=== PATIENT | male | born 1975 | race Caucasian/White ===

== ENCOUNTER 2017-12-07 19:31 | Observation (INO) | payer BC, OTHER ==
[2017-12-07] MEDS ORDERED: Sodium Chloride 0.9% 1,000 ML IV ONE (19:39)
[2017-12-07] MEDS ORDERED: Aspirin 81 MG Tab.Chew PO ONE (19:39)
[2017-12-07] MEDS ORDERED: Nitroglycerin 0.4 MG Tab.SL SL PRN (19:47)
--- NOTE | 2017-12-07 19:47 | EDM.PDOC ---
ED HPI GENERAL MEDICAL PROBLEM - General Stated Complaint: CHEST PAIN Time Seen by Provider: 12/07/17 19:38 Source of Information: Reports: Patient History Limitations: Reports: No Limitations - History of Present Illness INITIAL COMMENTS - FREE TEXT/NARRATIVE: HISTORY AND PHYSICAL: History of present illness: Patient is a 41-year-old male who presents to the emergency room today with complaints of chest pain since Thursday. In his intermittent and can last minutes to hours on the right side of the chest. He describes this pain as a "squeezing pressure" and "feels fluttery". The pain does not radiate anywhere. Does associate it with some mild nausea. Denies any visual changes, diaphoresis, shortness of breath, cough. Denies any abdominal pain, nausea, vomiting, diarrhea or constipation. No history of smoking. No excessive caffeine or stimulant use. No personal history of heart disease. No family history of heart disease. Review of systems: As per history of present illness and below otherwise all systems reviewed and negative. Past medical history: As per history of present illness and as reviewed below otherwise noncontributory. Surgical history: As per history of present illness and as reviewed below otherwise noncontributory. Social history: No reported history of drug or alcohol abuse. Family history: As per history of present illness and as reviewed below otherwise noncontributory. Physical exam: General: Well-developed and well-nourished 41-year-old male. Alert and oriented. Nontoxic appearing and in no acute distress. HEENT: Atraumatic, normocephalic, pupils equal and reactive bilaterally, negative for conjunctival pallor or scleral icterus, mucous membranes moist, throat clear, neck supple, nontender, trachea midline. No drooling or trismus noted. No meningeal signs Lungs: Clear to auscultation, breath sounds equal bilaterally, chest nontender. Heart: S1S2, regular rate and rhythm without overt murmur Abdomen: Soft, nondistended, nontender. Negative for masses or hepatosplenomegaly. Negative for costovertebral tenderness. Pelvis: Stable nontender. Genitourinary: Deferred. Rectal: Deferred. Skin: Intact, warm, dry. No lesions or rashes noted. Extremities: Atraumatic, negative for cords or calf pain. Neurovascular unremarkable. Neuro: Awake, alert, oriented. Cranial nerves II through XII unremarkable. Cerebellum unremarkable. Motor and sensory unremarkable throughout. Exam nonfocal. Notes: Lab work is unremarkable. I did discuss with the patient admission for observation. He is agreeable. Dr. Ruiz was consulted on this case and is agreeable to keeping the patient overnight. Diagnostics: CBC, CMP, troponin, EKG, chest x-ray Therapeutics: IV fluid, aspirin, nitroglycerin Prescription: Impression: Chest Pain Plan: Observation admission to Med/Surg Definitive disposition and diagnosis as appropriate pending reevaluation and review of above. Duration: Day(s): Location: Reports: Chest Left Chest Pain Score (Numeric/FACES): 3 - Related Data Allergies Allergy/AdvReac Type Severity Reaction Status Date / Time No Known Allergies Allergy Verified 12/07/17 19:41 Home Meds: Home Meds . [No Known Home Meds] 12/07/17 [History] ED ROS GENERAL - Review of Systems Review Of Systems: ROS reveals no pertinent complaints other than HPI. ED EXAM, GENERAL - Physical Exam Exam: See Below (See dictation) Course - Vital Signs Last Recorded V/S: Last Vital Signs Temp 98.0 F 12/07/17 19:34 Pulse 78 12/07/17 20:30 Resp 16 12/07/17 20:00 BP 117/67 12/07/17 20:30 Pulse Ox 99 12/07/17 20:00 - Orders/Labs/Meds Orders: Active Orders 24 hr Category Date Time Status EKG Documentation Completion [RC] STAT Care 12/07/17 19:39 Active Chest 1V Frontal [CR] Stat Exams 12/07/17 20:16 Taken Nitroglycerin [Nitrostat] Med 12/07/17 19:47 Active 0.4 mg SL Q5M PRN Medication Orders Nitroglycerin (Nitrostat) 0.4 mg SL Q5M PRN PRN Reason: Chest Pain Last Admin: 12/07/17 20:04 Dose: 0.4 mg Labs: Laboratory Tests 12/07/17 12/07/17 Range/Units 19:35 19:35 WBC 6.94 (4.0-11.0) K/uL RBC 4.85 (4.50-5.90) M/uL Hgb 15.8 (13.0-17.0) g/dL Hct 46.3 (38.0-50.0) % MCV 95.5 (80.0-98.0) fL MCH 32.6 H (27.0-32.0) pg MCHC 34.1 (31.0-37.0) g/dL RDW Std Deviation 43.2 (28.0-62.0) fl RDW Coeff of Doreen 13 (11.0-15.0) % Plt Count 221 (150-400) K/uL MPV 10.40 (7.40-12.00) fL Neut % (Auto) 37.6 L (48.0-80.0) % Lymph % (Auto) 49.4 H (16.0-40.0) % [place] % (Auto) 10.7 (0.0-15.0) % Eos % (Auto) 1.7 (0.0-7.0) % Baso % (Auto) 0.6 (0.0-1.5) % Neut # (Auto) 2.6 (1.4-5.7) K/uL Lymph # (Auto) 3.4 H (0.6-2.4) K/uL [place] # (Auto) 0.7 (0.0-0.8) K/uL Eos # (Auto) 0.1 (0.0-0.7) K/uL Baso # (Auto) 0.0 (0.0-0.1) K/uL Nucleated RBC % 0.0 /100WBC Nucleated RBCs # 0 K/uL Sodium 141 (136-148) mmol/L Potassium 3.7 (3.5-5.1) mmol/L Chloride 104 (98-107) mmol/L Carbon Dioxide 28.7 (21.0-32.0) mmol/L BUN 12 (7.0-18.0) mg/dL Creatinine 1.3 (0.8-1.3) mg/dL Est Cr Clr Drug Dosing 69.91 mL/min Estimated GFR (MDRD) > 60.0 ml/min Glucose 96 (74-106) mg/dL Calcium 9.1 (8.5-10.1) mg/dL Total Bilirubin 0.5 (0.2-1.0) mg/dL AST 23 (15-37) IU/L ALT 67 H (14-63) IU/L Alkaline Phosphatase 66 (46-116) U/L Troponin I < 0.050 (0.000-0.056) ng/mL Total Protein 7.7 (6.4-8.2) g/dL Albumin 4.2 (3.4-5.0) g/dL Globulin 3.5 (2.0-3.5) g/dL Albumin/Globulin Ratio 1.2 L (1.3-2.8) Meds: Medications Generic Name Dose Route Start Last Admin Trade Name Addison PRN Reason Stop Dose Admin Nitroglycerin 0.4 mg 12/07/17 19:47 12/07/17 20:04 Nitrostat SL 0.4 mg Q5M PRN Administration Chest Pain Discontinued Medications Generic Name Dose Route Start Last Admin Trade Name Addison PRN Reason Stop Dose Admin Aspirin 324 mg 12/07/17 19:39 12/07/17 19:55 Aspirin PO 12/07/17 19:40 324 mg ONETIME ONE Administration Sodium Chloride 1,000 mls @ 999 mls/hr 12/07/17 19:39 12/07/17 19:55 Normal Saline IV 12/07/17 20:39 999 mls/hr STAT ONE Administration Ketorolac Tromethamine 30 mg 12/07/17 20:43 12/07/17 20:46 Toradol IVPUSH 12/07/17 20:44 30 mg ONETIME ONE Administration Departure - Departure Time of Disposition: 21:00 Disposition: Refer to Observation Clinical Impression: Chest pain, rule out acute myocardial infarction - My Orders Last 24 Hours: My Active Orders 12/07/17 19:39 EKG Documentation Completion [RC] STAT 12/07/17 19:47 Nitroglycerin [Nitrostat] 0.4 mg SL Q5M PRN 12/07/17 20:16 Chest 1V Frontal [CR] Stat - Assessment/Plan Last 24 Hours: My Active Orders 12/07/17 19:39 EKG Documentation Completion [RC] STAT 12/07/17 19:47 Nitroglycerin [Nitrostat] 0.4 mg SL Q5M PRN 12/07/17 20:16 Chest 1V Frontal [CR] Stat
[2017-12-07 20:25] LABS: CHLORIDE,CL 104 mmol/L (98-107); SODIUM,NA 141 mmol/L (136-148)
[2017-12-07] MEDS ORDERED: Ketorolac 30 MG/ML SDV IVPUSH ONE (20:43)
[2017-12-07] MEDS ORDERED: Acetaminophen 325 MG Tab PO PRN (22:13)
[2017-12-07] MEDS ORDERED: Morphine 2 MG/ML Syringe IVPUSH PRN (22:14)
--- NOTE | 2017-12-08 12:25 | PCM.HP ---
H&P History of Present Illness - General Date of Service: 12/08/17 Admit Problem/Dx: Admission Diagnosis/Problem Admission Diagnosis/Problem Chest pain, rule out acute myocardial infarction - History of Present Illness Initial Comments - Free Text/Narative: 41 yo male who presented to the ED with chest pain. He described it as a left upper chest squeezing sensation. It would last for several minutes and occur several times a day throughout the weekend. He denies any cough, shortenss of breath. or diaphoresis. Left Chest Pain Score (Numeric/FACES): 1 - Related Data Allergies/Adverse Reactions: Allergies Allergy/AdvReac Type Severity Reaction Status Date / Time No Known Allergies Allergy Verified 12/07/17 19:41 Home Medications: Home Meds . [No Known Home Meds] 12/07/17 [History] Past Medical History - Past Health History Medical/Surgical History: Denies Medical/Surgical History Social & Family History - Family History Family Medical History: Noncontributory - Tobacco Use Smoking Status *Q: Former Smoker Years of Tobacco use: 3 Used Tobacco, but Quit: Yes Month/Year Tobacco Last Used: 3 years ago - Caffeine Use Caffeine Use: Reports: Soda - Recreational Drug Use Recreational Drug Use: No H&P Review of Systems - Review of Systems: Review Of Systems: ROS reveals no pertinent complaints other than HPI. Exam - Exam Exam: See Below - Vital Signs Vital Signs: Last Vital Signs Temp 36.9 C 12/08/17 11:43 Pulse 75 12/08/17 11:43 Resp 16 12/08/17 11:43 BP 131/80 12/08/17 11:43 Pulse Ox 93 L 12/08/17 11:43 Weight: 90.582 kg - Exam General: Alert, Oriented Neck: Supple, Trachea Midline Lungs: Clear to Auscultation, Normal Respiratory Effort Cardiovascular: Regular Rate, Regular Rhythm GI/Abdominal Exam: Normal Bowel Sounds, Soft, Non-Tender Extremities: Non-Tender, No Pedal Edema Skin: Warm, Dry, Intact Neurological: No: Focal Deficit - Patient Data Lab Results Last 24 hrs: Laboratory Results - last 24 hr 12/07/17 12/07/17 12/08/17 Range/Units 19:35 19:35 01:30 WBC 6.94 (4.0-11.0) K/uL RBC 4.85 (4.50-5.90) M/uL Hgb 15.8 (13.0-17.0) g/dL Hct 46.3 (38.0-50.0) % MCV 95.5 (80.0-98.0) fL MCH 32.6 H (27.0-32.0) pg MCHC 34.1 (31.0-37.0) g/dL RDW Std Deviation 43.2 (28.0-62.0) fl RDW Coeff of Doreen 13 (11.0-15.0) % Plt Count 221 (150-400) K/uL MPV 10.40 (7.40-12.00) fL Neut % (Auto) 37.6 L (48.0-80.0) % Lymph % (Auto) 49.4 H (16.0-40.0) % [place] % (Auto) 10.7 (0.0-15.0) % Eos % (Auto) 1.7 (0.0-7.0) % Baso % (Auto) 0.6 (0.0-1.5) % Neut # (Auto) 2.6 (1.4-5.7) K/uL Lymph # (Auto) 3.4 H (0.6-2.4) K/uL [place] # (Auto) 0.7 (0.0-0.8) K/uL Eos # (Auto) 0.1 (0.0-0.7) K/uL Baso # (Auto) 0.0 (0.0-0.1) K/uL Nucleated RBC % 0.0 /100WBC Nucleated RBCs # 0 K/uL Sodium 141 (136-148) mmol/L Potassium 3.7 (3.5-5.1) mmol/L Chloride 104 (98-107) mmol/L Carbon Dioxide 28.7 (21.0-32.0) mmol/L BUN 12 (7.0-18.0) mg/dL Creatinine 1.3 (0.8-1.3) mg/dL Est Cr Clr Drug Dosing 69.91 mL/min Estimated GFR (MDRD) > 60.0 ml/min Glucose 96 (74-106) mg/dL Calcium 9.1 (8.5-10.1) mg/dL Total Bilirubin 0.5 (0.2-1.0) mg/dL AST 23 (15-37) IU/L ALT 67 H (14-63) IU/L Alkaline Phosphatase 66 (46-116) U/L Troponin I < 0.050 < 0.050 (0.000-0.056) ng/mL Total Protein 7.7 (6.4-8.2) g/dL Albumin 4.2 (3.4-5.0) g/dL Globulin 3.5 (2.0-3.5) g/dL Albumin/Globulin Ratio 1.2 L (1.3-2.8) 12/08/17 Range/Units 07:25 WBC (4.0-11.0) K/uL RBC (4.50-5.90) M/uL Hgb (13.0-17.0) g/dL Hct (38.0-50.0) % MCV (80.0-98.0) fL MCH (27.0-32.0) pg MCHC (31.0-37.0) g/dL RDW Std Deviation (28.0-62.0) fl RDW Coeff of Doreen (11.0-15.0) % Plt Count (150-400) K/uL MPV (7.40-12.00) fL Neut % (Auto) (48.0-80.0) % Lymph % (Auto) (16.0-40.0) % [place] % (Auto) (0.0-15.0) % Eos % (Auto) (0.0-7.0) % Baso % (Auto) (0.0-1.5) % Neut # (Auto) (1.4-5.7) K/uL Lymph # (Auto) (0.6-2.4) K/uL [place] # (Auto) (0.0-0.8) K/uL Eos # (Auto) (0.0-0.7) K/uL Baso # (Auto) (0.0-0.1) K/uL Nucleated RBC % /100WBC Nucleated RBCs # K/uL Sodium (136-148) mmol/L Potassium (3.5-5.1) mmol/L Chloride (98-107) mmol/L Carbon Dioxide (21.0-32.0) mmol/L BUN (7.0-18.0) mg/dL Creatinine (0.8-1.3) mg/dL Est Cr Clr Drug Dosing mL/min Estimated GFR (MDRD) ml/min Glucose (74-106) mg/dL Calcium (8.5-10.1) mg/dL Total Bilirubin (0.2-1.0) mg/dL AST (15-37) IU/L ALT (14-63) IU/L Alkaline Phosphatase (46-116) U/L Troponin I < 0.050 (0.000-0.056) ng/mL Total Protein (6.4-8.2) g/dL Albumin (3.4-5.0) g/dL Globulin (2.0-3.5) g/dL Albumin/Globulin Ratio (1.3-2.8) Result Diagrams: 12/07/17 19:35 12/07/17 19:35 Problem List Initiated/Reviewed/Updated: Yes Orders Last 24hrs: Active Orders 24 hr Category Date Time Status Admission Status [Patient Status] [ADT] Stat ADT 12/07/17 21:08 Active Telemetry Monitoring [Cardiac Monitoring] [RC] Q8H Care 12/07/17 22:14 Active Chest 1V Frontal [CR] Stat Exams 12/07/17 20:16 Taken Acetaminophen [Tylenol] Med 12/07/17 22:13 Active 650 mg PO Q6H PRN Morphine Med 12/07/17 22:14 Active 2 mg IVPUSH Q3H PRN Nitroglycerin [Nitrostat] Med 12/07/17 19:47 Active 0.4 mg SL Q5M PRN Medication Orders Acetaminophen (Tylenol) 650 mg PO Q6H PRN PRN Reason: Pain Morphine Sulfate (Morphine) 2 mg IVPUSH Q3H PRN PRN Reason: Chest Pain Nitroglycerin (Nitrostat) 0.4 mg SL Q5M PRN PRN Reason: Chest Pain Last Admin: 12/07/17 20:04 Dose: 0.4 mg Assessment/Plan Comment:: 41 yo male who presented with chest pain. He ruled out for acute coronary syndrome with serial negative cardiac enzymes. He was discharged home and referred to outpatient cardiac stress testing.
--- NOTE | 2017-12-08 14:22 | CR ---
EXAM DATE: 12/07/17 PATIENT'S AGE: 41 Patient: FRANCIA DOTY Facility: [place], [place] Site . Site : [id number] Study: XRay Chest [id number]/13/[id number] 9:16:21 PM Ordering Physician: Doctor Coon Final Report: INDICATION: Chest pain TECHNIQUE: Chest radiograph 1 view COMPARISON: None FINDINGS: Mediastinum: The mediastinum is normal in appearance. The heart silhouette is normal in size and morphology. Lung: Both lungs are unremarkable in appearance. No sign of pleural effusion seen. No pneumothorax is identified. Musculoskeletal: Unremarkable for age. IMPRESSION: 1. No acute cardiopulmonary disease is seen. Dictated by: Chito Burch MD @ 12/07/2017 21:34:27 (Electronic Signature) Report Signed by Proxy. [facility] CENTERMaria Ines
== END 2017-12-08 14:45 | disposition home or self-care (01) ==
LOC: MW.ED 19:31 → MW.MS 21:08
PROVIDERS: ADMIT Internal Medicine; ATTEND Internal Medicine
DX: R07.9 Chest pain, unspecified (principal); Z87.891 Personal history of nicotine dependence
CPT/HCPCS: 36415; 71045; 80053; 84484; 85025; 93005; 96361; 96374; 99285; A9270; G0378; J1885; J7040; 99284

== ENCOUNTER 2024-10-31 11:07 | Emergency (ER) | payer BC, MEDICAID | END 2024-10-31 13:32 | disposition home or self-care (01) | LOC: MW.ED 11:07 | DX: S00.86XA Insect bite (nonvenomous) of other part of head, initial encounter (principal); Z79.899 Other long term (current) drug therapy; W57.XXXA Bitten or stung by nonvenomous insect and other nonvenomous arthropods, initial encounter; Y93.89 Activity, other specified | CPT/HCPCS: 99282 ==